=== PATIENT | female | born 1955 | race Caucasian/White ===

== ENCOUNTER → 2019-02-16 | Outpatient (CLI) | payer BC ==
[~2019-02-16] MED LIST: ASPI-496 PO; ATOR20TA37 PO; CEFAZOLIN 1,000 MG ONE; DEXAMETHASONE 4 MG/ML, 1ML ONE; FENTANYL PF 250 MCG/5ML ONE; FLUO20TA25 PO; GABA300C10 PO; MIDAZOLAM 1 MG/ML, 2ML ONE; ONDANSETRON 2MG/ML, 2ML ONE; PROPOFOL 10 MG/ML, 20ML ONE
== END | disposition home or self-care (01) ==
LOC: STAR 13:02
PROVIDERS: ATTEND Orthopaedic Surgery
DX: Z01.818 Encounter for other preprocedural examination (principal); M25.532 Pain in left wrist; S52.552A Other extraarticular fracture of lower end of left radius, initial encounter for closed fracture; X58.XXXA Exposure to other specified factors, initial encounter; Y93.89 Activity, other specified; Y92.89 Other specified places as the place of occurrence of the external cause; Y99.8 Other external cause status; Z88.0 Allergy status to penicillin; Z88.5 Allergy status to narcotic agent
CPT/HCPCS: 93005

== ENCOUNTER 2019-02-21 05:41 | Day surgery (SDC) | payer BC ==
[~2019-02-21] VITALS: Ht 167.6 cm; Wt 84.2 kg
[~2019-02-21 05:41] MED LIST changes: -CEFAZOLIN 1,000 MG ONE; -DEXAMETHASONE 4 MG/ML, 1ML ONE; -FENTANYL PF 250 MCG/5ML ONE; -MIDAZOLAM 1 MG/ML, 2ML ONE; -ONDANSETRON 2MG/ML, 2ML ONE; -PROPOFOL 10 MG/ML, 20ML ONE
[2019-02-21] MEDS ORDERED: LACTATED RINGERS 1,000 ML IV SCH (06:06)
[2019-02-21] MEDS ORDERED: NEOSPORIN OINT, 15GM ONE (06:14)
[2019-02-21] MEDS ORDERED: BUPIVACAINE/PF 0.5% ONE (06:14)
[2019-02-21 06:26] VITALS: BP 123/78
[2019-02-21] MEDS ORDERED: hydrALAzine 20 MG/ML, 1ML IV PRN (07:00)
[2019-02-21] MEDS ORDERED: MORPHINE SULFATE 4 MG/ML, 1ML IVPush PRN (07:00)
[2019-02-21] MEDS ORDERED: LABETALOL 5MG/ML, 20ML IV PRN (07:00)
[2019-02-21] MEDS ORDERED: HALOPERIDOL 5 MG/ML IV PRN (07:00)
[2019-02-21] MEDS ORDERED: PROMETHAZINE 25 MG/ML, 1ML IV PRN (07:00)
[2019-02-21] MEDS ORDERED: ACETAMINOPHEN 325 MG TABLET PO PRN (07:00)
[2019-02-21] MEDS ORDERED: OXYcodone 5 MG/5 ML ORAL.SOL UDC PO PRN (07:00)
[2019-02-21] MEDS ORDERED: FENTANYL PF 100 MCG/2ML IV PRN (07:00)
[2019-02-21] MEDS ORDERED: HYDROmorphone 2 MG/ML, 1ML IVPush PRN (07:00)
[2019-02-21] MEDS ORDERED: MEPERIDINE/PF 25MG/ML,1ML IVPush PRN (07:00)
[2019-02-21] MEDS ORDERED: PHENYLEPHRINE 10 MG/ML ONE (07:18)
[2019-02-21] MEDS ORDERED: PROPOFOL 10 MG/ML, 20ML ONE (07:18)
[2019-02-21] MEDS ORDERED: MIDAZOLAM 1 MG/ML, 2ML ONE (07:18)
[2019-02-21] MEDS ORDERED: ONDANSETRON 2MG/ML, 2ML ONE (07:18)
[2019-02-21] MEDS ORDERED: CEFAZOLIN 1,000 MG ONE (07:18)
[2019-02-21] MEDS ORDERED: DEXAMETHASONE 4 MG/ML, 1ML ONE (07:18)
== END 2019-02-21 09:30 | disposition home or self-care (01) ==
LOC: OUT 05:41
PROVIDERS: ATTEND Orthopaedic Surgery
DX: T84.123A Displacement of internal fixation device of bone of left forearm, initial encounter (principal); E78.5 Hyperlipidemia, unspecified; F32.9 Major depressive disorder, single episode, unspecified; Z79.82 Long term (current) use of aspirin; Z79.891 Long term (current) use of opiate analgesic; Z79.899 Other long term (current) drug therapy; Z88.0 Allergy status to penicillin; Z88.5 Allergy status to narcotic agent; Z98.890 Other specified postprocedural states; Y83.8 Other surgical procedures as the cause of abnormal reaction of the patient, or of later complication, without mention of misadventure at the time of the procedure
CPT/HCPCS: 20680; 73100; J0690; J1100; J2250; J2370; J2405; J2704; J3010; J7120; 76000